=== PATIENT | female | born 1985 | race Caucasian/White ===

== ENCOUNTER 2017-07-10 04:40 | Inpatient (IN) | payer MEDICAID, BC ==
[2017-07-10 05:35] LABS: RUPTURE FETAL MEMBRANES POSITIVE (NEGATIVE)
[2017-07-10] MEDS ORDERED: METHYLERGONOVINE 0.2 MG INJ IM ×2 (06:00→15:00)
[2017-07-10] MEDS ORDERED: CARBOPROST 250 MCG INJ IM ×2 (06:00→15:00)
[2017-07-10] MEDS ORDERED: OXYTOCIN 30 UNITS/LR 500 ML IV ×2 (06:00→15:00)
[2017-07-10] MEDS ORDERED: MISOPROSTOL 200 MCG TAB PR ×2 (06:00→15:00)
[2017-07-10] MEDS: LACTATED RINGER'S 1,000 ML IV (06:12)
[2017-07-10 06:15] LABS: WHITE BLOOD COUNT 6.9 10^3/ul (4.8-10.8)
[2017-07-10 06:15] LABS: HEMATOCRIT 37.8 % (37.0-47.0); HEMOGLOBIN 12.1 g/dl (12.0-16.0); MEAN CORPUSCULAR HEMOGLOBIN 25.3 pg (29.0-33.0); MEAN CORPUSCULAR VOLUME 78.9 fl (82.0-101.0); MEAN PLATELET VOLUME 10.3 fl (7.4-10.4); PLATELET COUNT 241 10^3/UL (140-415); RED BLOOD COUNT 4.79 10^6/ul (4.20-5.40); RED CELL DISTRIBUTION WIDTH 15.5 % (11.5-14.5)
[2017-07-10 06:21] LABS: ADD MAN DIFF? YES; POSITIVE DIFF @See below
[2017-07-10 06:34] LABS: INR 0.99; PROTIME 13.2 Sec (11.9-14.9)
[2017-07-10 06:35] LABS: PARTIAL THROMBOPLASTIN TIME 30.6 Sec (25.0-35.0)
[2017-07-10 07:09] LABS: HEPATITIS B SURFACE ANTIGEN NEGATIVE (NEGATIVE)
[2017-07-10 07:19] LABS: HIV 1&2 ANTIBODY NEGATIVE (NEGATIVE)
[2017-07-10] MEDS ORDERED: BUPIVACAINE 0.75%/DEXT (SPINAL) 2 ML INJ (07:44)
[2017-07-10] MEDS ORDERED: morphine SULFATE/PF (10 MG/10 ML) INJ (07:44)
[2017-07-10] MEDS ORDERED: PHENYLephrine (100 MCG/ML) 5ML SYG (08:04)
[2017-07-10] MEDS ORDERED: DEXAMETHASONE 4 MG/ML 1 ML INJ (08:06)
[2017-07-10] MEDS ORDERED: ONDANSETRON 4 MG INJ (08:08)
[2017-07-10 08:19] LABS: AMPHETAMINE/METHAMPHETAMINE POSITIVE (NEGATIVE); BARBITURATES NEGATIVE (NEGATIVE); BENZODIAZEPINES NEGATIVE (NEGATIVE); CANNABINOIDS NEGATIVE (NEGATIVE); COCAINE NEGATIVE (NEGATIVE); OPIATES NEGATIVE (NEGATIVE)
[2017-07-10] MEDS ORDERED: MIDAZOLAM 1 MG/ML 2 ML INJ (08:26)
[2017-07-10 09:19] LABS: ANISOCYTOSIS 2+ (0-0); BAND NEUTROPHILS % (M) 15 % (0-4); BASOPHILS % (M) 1 % (0-2); GIANT THROMBO% (M) 1 % (0-0); LYMPHOCYTES #M 1.8 10^3/ul (0.8-2.9); LYMPHOCYTES % (M) 27 % (15-51); MICROCYTOSIS 2+ (0-0); MONOCYTE #M 0.1 10^3/ul (0.3-0.9); MONOCYTES % (M) 2 % (0-11); PLATELET ESTIMATE NORMAL; POLYCHROMASIA 3+ (0-0); REACTIVE LYMPHOCYTES #M 0.6 10^3/ul (0.0-0.0); REACTIVE LYMPHOCYTES% (M) 10 % (0-0); SEG NEUT #M 3.2 10^3/ul (1.6-7.5); SEGMENTED NEUTROPHILS (M) % 45 % (39-77); SMUDGE%M 4 % (0-0)
[2017-07-10] MEDS ORDERED: HYDROmorphONE 0.5 MG/0.5 ML SYG IV ×2 (09:30)
[2017-07-10] MEDS ORDERED: NALOXONE (0.4 MG/ML) INJ IV (09:30)
[2017-07-10] MEDS ORDERED: ZOLPIDEM 5 MG TAB PO (09:30)
[2017-07-10] MEDS ORDERED: ONDANSETRON 4 MG INJ IV (09:30)
[2017-07-10] MEDS ORDERED: DIPHENHYDRAMINE 50 MG INJ IV (09:30)
[2017-07-10] MEDS: CEFAZOLIN 2 GM/50 ML (PMX) 50 ML IV ×3 (09:55→22:47)
[2017-07-10] MEDS: AZITHROMYCIN 500MG/NS (PMX) 250 ML IVPB (10:01)
[2017-07-10] MEDS: OXYTOCIN 30 UNITS/LR 500 ML IV ×5 (10:59→23:30)
[2017-07-10 12:36] LABS: ALANINE AMINOTRANSFERASE 22 IU/L (13-69); ALBUMIN 2.8 g/dl (3.3-4.9); ALBUMIN/GLOBULIN RATIO 0.82; ALKALINE PHOSPHATASE 201 IU/L (42-121); ANION GAP 10 (8-16); ASPARTATE AMINO TRANSFERASE 21 IU/L (15-46); BILIRUBIN,INDIRECT 0.2 mg/dl (0-1.1); BILIRUBIN,TOTAL 0.2 mg/dl (0.2-1.3); BLOOD UREA NITROGEN 11 mg/dl (7-20); CALCIUM 8.6 mg/dl (8.4-10.2); CARBON DIOXIDE 24 mmol/L (21-31); CHLORIDE 109 mmol/L (97-110); CREATININE 0.58 mg/dl (0.44-1.00); GLUCOSE 82 mg/dl (70-220); POTASSIUM 4.2 mmol/L (3.5-5.1); SODIUM 139 mmol/L (135-144); TOTAL PROTEIN 6.2 g/dl (6.1-8.1); URIC ACID 5.5 mg/dl (3.1-7.9)
[2017-07-10 13:42] LABS: ADD UMIC YES; UR ASCORBIC ACID NEGATIVE (NEGATIVE); UR BILIRUBIN (Dip) NEGATIVE (NEGATIVE); UR BLOOD (Dip) NEGATIVE (NEGATIVE); UR CLARITY CLEAR (CLEAR); UR COLOR YELLOW (YELLOW); UR GLUCOSE (Dip) NEGATIVE (NEGATIVE); UR KETONES (Dip) NEGATIVE (NEGATIVE); UR LEUKOCYTE ESTERASE (Dip) NEGATIVE Leu/ul (NEGATIVE); UR MUCUS FEW /HPF (NONE SEEN); UR NITRITE (Dip) NEGATIVE (NEGATIVE); UR RBC 3 /HPF (0-5); UR SPECIFIC GRAVITY (Dip) 1.017 (1.003-1.030); UR TOTAL PROTEIN (Dip) 1+ mg/dl (NEGATIVE); UR UROBILINOGEN (Dip) NEGATIVE (NEGATIVE); UR WBC 2 /HPF (0-5)
[2017-07-10] MEDS ORDERED: MAGNESIUM SULFATE 4 GM/100 ML 100 ML (13:58)
[2017-07-10] MEDS: LABETALOL 200 MG TAB PO ×2 (14:00→21:00)
[2017-07-10] MEDS: MAGNESIUM SULFATE 4 GM/100 ML 100 ML IVPB (14:05)
[2017-07-10] MEDS: MAGNESIUM SULFATE 20 GM/500 ML 500 ML IV ×2 (14:36→23:34)
[2017-07-10] MEDS ORDERED: OXYCODONE/ACETAMINOPHEN (5/325) TAB PO (15:00)
[2017-07-10 15:04] LABS: RAPID PLASMA REAGIN NONREACTIVE (NR)
[2017-07-10] MEDS: SENNA/DOCUSATE NA (8.6MG/50MG) TAB PO (21:00)
[2017-07-10] MEDS ORDERED: LABETALOL 200 MG TAB PO (21:00)
[2017-07-11 01:05] LABS: MAGNESIUM 3.9 mg/dl (1.7-2.5)
[2017-07-11] MEDS: OXYTOCIN 30 UNITS/LR 500 ML IV ×2 (02:00→06:00)
[2017-07-11] MEDS: LABETALOL 200 MG TAB PO ×2 (06:11→21:00)
[2017-07-11] MEDS: CEFAZOLIN 2 GM/50 ML (PMX) 50 ML IV (06:12)
[2017-07-11] MEDS: LANOLIN 7 GM TUBE TOP (07:32)
[2017-07-11] MEDS: MAGNESIUM SULFATE 20 GM/500 ML 500 ML IV (08:22)
[2017-07-11] MEDS: SENNA/DOCUSATE NA (8.6MG/50MG) TAB PO ×2 (08:22→21:00)
[2017-07-11] MEDS: KETOROLAC 30 MG INJ IV (08:51)
[2017-07-11 09:33] LABS: HEMATOCRIT 34.4 % (37.0-47.0); MEAN CORPUSCULAR HEMOGLOBIN 25.2 pg (29.0-33.0); MEAN CORPUSCULAR VOLUME 78.7 fl (82.0-101.0); MEAN PLATELET VOLUME 10.4 fl (7.4-10.4); PLATELET COUNT 216 10^3/UL (140-415); RED BLOOD COUNT 4.37 10^6/ul (4.20-5.40); RED CELL DISTRIBUTION WIDTH 15.5 % (11.5-14.5)
[2017-07-11 09:33] LABS: WHITE BLOOD COUNT 6.5 10^3/ul (4.8-10.8)
[2017-07-11 09:36] LABS: ADD MAN DIFF? YES; POSITIVE DIFF @See below
[2017-07-11 09:53] LABS: MAGNESIUM 4.4 mg/dl (1.7-2.5)
[2017-07-11] MEDS: LACTATED RINGER'S 1,000 ML IV (10:13)
[2017-07-11 10:15] LABS: ANISOCYTOSIS 1+ (0-0); BAND NEUTROPHILS #M 0.2 10^3/ul (0.0-0.6); BAND NEUTROPHILS % (M) 4 % (0-4); GIANT THROMBO% (M) 1 % (0-0); LYMPHOCYTES % (M) 47 % (15-51); METAMYELOCYTES %M 1 % (0-0); MICROCYTOSIS 1+ (0-0); MONOCYTE #M 0.3 10^3/ul (0.3-0.9); MONOCYTES % (M) 6 % (0-11); MYELOCYTES % (M) 1 % (0-0); PLATELET ESTIMATE NORMAL; POLYCHROMASIA 1+ (0-0); ROULEAU 1+ (0-0); SEG NEUT #M 2.5 10^3/ul (1.6-7.5); SEGMENTED NEUTROPHILS (M) % 39 % (39-77); SMUDGE%M 4 % (0-0)
[2017-07-11 11:32] LABS: RUBELLA ANTIBODY - IGG 5.48 index
[2017-07-11] MEDS: IBUPROFEN 600 MG TAB PO ×3 (12:00→23:53)
[2017-07-11 12:38] LABS: MAGNESIUM 4.7 mg/dl (1.7-2.5)
[2017-07-12] MEDS: IBUPROFEN 600 MG TAB PO ×2 (05:26→12:00)
[2017-07-12] MEDS: SENNA/DOCUSATE NA (8.6MG/50MG) TAB PO (09:00)
[2017-07-12] MEDS: LABETALOL 200 MG TAB PO (09:44)
[2017-07-13] MEDS ORDERED: DIPHTH/TET/ACEL PERTUSS (ADULT) 0.5 ML VIAL IM* (09:00)
[2017-07-13 10:32] LABS: RUBELLA ANTIBODY - IGM <20.00 AU/mL
== END 2017-07-12 17:15 | disposition home or self-care (01) | DRG 765 ==
LOC: OBT 04:40 → L-D 04:40 → OBT 05:20 → L-D 05:20 → PP1 14:48
PROVIDERS: Obstetrics & Gynecology
PROC: 10D00Z1 Extraction of Products of Conception, Low, Open Approach (ICD-10-PCS; principal; 2017-07-10)
DX: O34.211 Maternal care for low transverse scar from previous cesarean delivery (principal); Z68.43 Body mass index [BMI] 50.0-59.9, adult; N73.6 Female pelvic peritoneal adhesions (postinfective); O99.214 Obesity complicating childbirth; E66.01 Morbid (severe) obesity due to excess calories; Z3A.37 37 weeks gestation of pregnancy; Z37.0 Single live birth
CPT/HCPCS: 76815; 76818; 80053; 80307; 81001; 83735; 84112; 84560; 85025; 85610; 85730; 86592; 86703; 86762; 86850; 86900; 86901; 87340; 88307; 94760; 99464